=== PATIENT | male | born 1995 | race Asian ===

== ENCOUNTER 2018-06-03 20:25 | Emergency (ER) | payer OTHER ==
--- NOTE | 2018-06-03 20:57 | EDPHY ---
General - History Smoking Status: Never smoked Time Seen by Provider: 06/03/18 20:45 Narrative: CLINICAL IMPRESSION: Suicidal ideation, suicide attempt ASSESSMENT/PLAN: Patient is a 22-year-old male with no significant medical history who presents with suicide attempt by hanging. Patient is afebrile and nontoxic-appearing, he is in no acute distress. Physical examination reveals abrasion to the left anterior neck with mild tenderness to palpation, mild hyperemia to the right anterior neck with associated tenderness to palpation. His phonation is normal. CBC revealed no evidence of leukocytosis or anemia. His vital signs were reviewed and no findings to suggest bacterial illness. Metabolic panel with no metabolic abnormalities or acute kidney injury. Tylenol, salicylate and alcohol negative. Drug screen positive for cannabinoid which is consistent with his history. CT angiogram of his neck revealed no acute abnormality including vascular injury. The patient was formally evaluated by P with recommendation for inpatient placement. On re-evaluation the patient complains of a mild headache, he was given ibuprofen with improvement of his headache. On repeat examination and prior to transfer of care the patient is well-appearing, reports improvement of his headache and denied any other complaint. He remained hemodynamically stable with his parents at bedside. DIFFERENTIAL DX: Including but not limited to and in no specific order, soft tissue injury, vascular injury, psychosis, medication noncompliance, medication side effect, depression and illicit drug use. ED COURSE: 2049: Discussed with Dr. Oshea 2144: Dr. Dong with Radiology called, CT angiogram of the neck is unremarkable and without evidence of vascular injury. 2151: Patient's laboratory studies reviewed, CT negative. Medically cleared for P, placement pending. 5: Case discussed with Dr. Alvarez who will resume care of this patient at this time. CHIEF COMPLAINT: Suicide attempt by hanging HPI: Patient is a 22-year-old male with no significant medical history who presents to the emergency department after a suicide attempt by hanging. Patient is present with his mother and father, seen and evaluated the crisis center just prior to evaluation and sent here for med clearance with plan for inpatient placement. Patient reports earlier this afternoon he tried to hang himself by wrapping a belt around his neck. He reports letting his legs out from under him causing pressure around his neck, reports near loss of consciousness upon when he released the belt. Patient's mother and father took him to the crisis center and he was subsequently sent here. Patient reports no history of suicidal attempt or ideation in the past. 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 He complains of mild bilateral anterior neck pain. He denies any loss of consciousness, headache, dizziness, sore throat, difficulty swallowing or change in voice. He denies any other physical complaints. PMH: Denies Family History: Noncontributory Social History: Smokes marijuana, denies illicit drug use, denies cigarette smoking, occasional alcohol REVIEW OF SYSTEMS: All other systems negative Constitutional: No fever, no chills, appetite change. Eyes: No discharge, vision change ENT: No sore throat, congestion, ear pain. Cardiovascular: No chest pain, no palpitations. Respiratory: No cough, no shortness of breath. Gastrointestinal: No abdominal pain, no vomiting, diarrhea. Genitourinary: No hematuria, dysuria, flank pain, pelvic pain Musculoskeletal: Anterior neck pain. No back pain, joint swelling, joint pain , myalgias. Skin: No rashes, color change. Neurological: No headache, dizziness, weakness. PHYSICAL EXAM: General Appearance: Well-developed, no acute distress. HENT: Normocephalic, atraumatic. Bilateral external ears are normal. Nares are clear, mucosa is pink. Oropharynx is clear, uvula is midline. There is no tonsillar enlargement or exudate. The dentition is normal. Eyes: PERRLA, no acute vision change, nystagmus, swelling, discharge, pain or photosensitivity. Conjunctiva pink, no pallor or injection Neck: Left anterior neck with small abrasion along the posterior SCM, mild associated tenderness to palpation. Patient with hyperemia along the anterior portion of the right SCM with tenderness to palpation. Supple, no lymphadenopathy, no midline pain, FROM, no meningismus. Respiratory: There are no retractions, lungs are clear to auscultation. Cardiac: Regular rate and rhythm, no murmurs or gallops. Gastrointestinal: Abdomen is soft, nontender, bowel sounds normal, no masses/ hernia, no rigidity, guarding or focal peritoneal findings. Neurological: Alert and oriented x 3, CN 2-12 grossly intact, normal gait no ataxia, DTR's intact, normal sensation and strength Skin: Warm, dry, no rashes, no nodules on palpation. Musculoskeletal: Extremities are symmetrical, full range of motion, no tenderness, deformity, swelling, or erythema. Psychiatric: Patient is oriented X 3, there is no agitation, poor eye contact. MEDICAL DECISION MAKING: Patient was seen independently. Secondary supervising physician at time of evaluation was Dr. Oshea. Diagnosis: Suicide attempt. New, requires workup Summary: See Assessment and Plan for summary of ED visit Clinical lab tests: ordered / reviewed. Independent visualization of images, tracing, or specimens: Yes. Decision to obtain medical records or history from someone other than the patient: Yes, parents Review / Summarize previous medical records: Yes Discussed patient with another provider: Yes, Dr. Oshea, Dr. Alvarez Patient Progress: Stable, dispo pending at this time. (Chrissy Collier) 00:05 Care assumed from PA pending placement. Pt has been accepted to [facility] by Dr Granados. I have completed the EMTALA. (Tahir Alvarez) - Diagnostics Imaging Results: Imaging Impressions Neck CTA 06/03/18 20:52 Impression: Normal CT angiogram of the neck. Stenoses are calculated using [place] Symptomatic Carotid Endarterectomy Trial (NASCET) criteria. Findings and recommendations discussed with CLARISA Chowdary at 2143 hour, 06/03. Discussion: The patient was evaluated and managed by the Physician Master Fisher. I discussed the patient's presentation and course with the midlevel provider with them and agree with the evaluation. My co-signature indicates that I have reviewed this chart and I agree with the findings and plan of care as documented. I am the secondary supervising physician. (Sarah Oshea) - Objective Vital Signs: Initial Vital Signs Temperature (C) 36.5 C 06/03/18 20:25 Heart Rate 69 06/03/18 20:25 Respiratory Rate 16 06/03/18 20:25 Blood Pressure 132/67 H 06/03/18 20:25 O2 Sat (%) 95 06/03/18 20:25 O2 Delivery Mode Room Air Allergies/Adverse Reactions: No Known Allergies Allergy (Unverified 06/03/18 20:39) Home Medications: Medication Instructions Recorded NK [No Known Home Meds] 06/03/18 Laboratory Results: Laboratory Results 06/03/18 20:24 06/03/18 20:24 06/03/18 06/03/18 06/03/18 21:34 20:24 20:24 WBC 7.01 10^3/uL 10^3/uL (3.80-9.50) RBC 5.49 10^6/uL 10^6/uL (4.40-6.38) Hgb 15.9 g/dL g/dL (13.7-17.5) Hct 47.7 % % (40.0-51.0) MCV 86.9 fL fL (81.5-99.8) MCH 29.0 pg pg (27.9-34.1) MCHC 33.3 g/dL g/dL (32.4-36.7) RDW 12.5 % % (11.5-15.2) Plt Count 257 10^3/uL 10^3/uL (150-400) MPV 9.6 fL fL (8.7-11.7) Neut % (Auto) 55.8 % % (39.3-74.2) Lymph % (Auto) 32.0 % % (15.0-45.0) [place] % (Auto) 8.7 % % (4.5-13.0) Eos % (Auto) 2.7 % % (0.6-7.6) Baso % (Auto) 0.7 % % (0.3-1.7) Nucleat RBC Rel Count 0.0 % % (0.0-0.2) Absolute Neuts (auto) 3.91 10^3/uL 10^3/uL (1.70-6.50) Absolute Lymphs (auto) 2.24 10^3/uL 10^3/uL (1.00-3.00) Absolute Monos (auto) 0.61 10^3/uL 10^3/uL (0.30-0.80) Absolute Eos (auto) 0.19 10^3/uL 10^3/uL (0.03-0.40) Absolute Basos (auto) 0.05 10^3/uL 10^3/uL (0.02-0.10) Absolute Nucleated RBC 0.00 10^3/uL 10^3/uL (0-0.01) Immature Gran % 0.1 % % (0.0-1.1) Immature Gran # 0.01 10^3/uL 10^3/uL (0.00-0.10) Sodium 137 mEq/L mEq/L (135-145) Potassium 3.7 mEq/L mEq/L (3.5-5.2) Chloride 105 mEq/L mEq/L (97-110) Carbon Dioxide 22 mEq/l mEq/l (22-31) Anion Gap 10 mEq/L mEq/L (6-14) BUN 16 mg/dL mg/dL (7-23) Creatinine 0.9 mg/dL mg/dL (0.7-1.3) Estimated GFR > 60 Glucose 85 mg/dL mg/dL (70-100) Calcium 9.3 mg/dL mg/dL (8.5-10.4) Salicylates < 1.0 mg/dL L mg/dL (2.0-20.0) Urine Opiates Screen NEGATIVE (NEGATIVE) Acetaminophen < 10 mcg/mL L mcg/mL (10-30) Urine Barbiturates NEGATIVE (NEGATIVE) Ur Phencyclidine Scrn NEGATIVE (NEGATIVE) Ur Amphetamine Screen NEGATIVE (NEGATIVE) U Benzodiazepines Scrn NEGATIVE (NEGATIVE) Urine Cocaine Screen NEGATIVE (NEGATIVE) U Marijuana (THC) Screen NON-NEGATIVE H (NEGATIVE) Ethyl Alcohol < 10 mg/dL mg/dL (0-10) Medications Given: Discontinued Medications Ibuprofen (Motrin) 400 mg PO EDNOW ONE Stop: 06/03/18 22:16 Last Admin: 06/03/18 22:20 Dose: 400 mg Departure - Departure Disposition: Other Psych, Not [place] Clinical Impression: Suicidal ideation Suicide attempt by hanging Qualifiers: Encounter type: initial encounter Qualified Code(s): T71.162A - Asphyxiation due to hanging, intentional self-harm, initial encounter Referrals: NONE *PRIMARY CARE P,. [Primary Care Provider] - As per Instructions
[2018-06-03 20:59] LABS: PLATELET COUNT 257 10^3/uL (150-400)
[2018-06-03] MEDS ORDERED: IOHEXOL 350mgI/ML (OMNIPAQUE) 150 ML BTL IV ONE (21:01)
[2018-06-03] MEDS ORDERED: IBUPROFEN 200 MG TAB PO ONE (22:15)
[2018-06-04 02:58] VITALS: BP 111/69
== END 2018-06-04 04:28 ==
DX: S10.91XA Abrasion of unspecified part of neck, initial encounter (principal); T71.162A Asphyxiation due to hanging, intentional self-harm, initial encounter; Y92.003 Bedroom of unspecified non-institutional (private) residence as the place of occurrence of the external cause
CPT/HCPCS: 80305; G0480; Q9967